=== PATIENT | male | born 1980 | race Caucasian/White ===

== ENCOUNTER 2017-05-16 08:17 | Emergency (ER) | payer BC ==
--- NOTE | 2017-05-16 09:32 | RADIOLOGY REPORT (SQ) ---
EXAM DESCRIPTION: CHEST PA/LAT COMPLETED DATE/TIME: 05/16/2017 9:08 am REASON FOR STUDY: cough COMPARISON: April 2010 EXAM PARAMETERS: NUMBER OF VIEWS: two views TECHNIQUE: Digital Frontal and Lateral radiographic views of the chest acquired. RADIATION DOSE: NA LIMITATIONS: none FINDINGS: LUNGS AND PLEURA: No opacities, masses or pneumothorax. No pleural effusion. MEDIASTINUM AND HILAR STRUCTURES: No masses or contour abnormalities. HEART AND VASCULAR STRUCTURES: Heart normal size. No evidence for failure. BONES: No acute findings. HARDWARE: None in the chest. OTHER: No other significant finding. IMPRESSION: NO SIGNIFICANT RADIOGRAPHIC FINDING IN THE CHEST. TECHNICAL DOCUMENTATION: JOB ID: [id number] [employer]- All Rights Reserved
[2017-05-16] MEDS ORDERED: ONDANSETRON 4 MG TAB.RAPDIS PO ONE (09:41)
--- NOTE | 2017-05-16 09:41 | ER Document Report ---
ED Flu Like - General Mode of Arrival: Ambulatory Information source: Patient TRAVEL OUTSIDE OF THE [place] IN LAST 30 DAYS: No <GIANNA YEPEZ - Last Filed: 05/16/17 10:43> <SHANKAR RUEDA - Last Filed: 05/16/17 15:19> - General Chief Complaint: Cough Stated Complaint: FLU LIKE SYMPTOMS Time Seen by Provider: 05/16/17 08:40 Notes: Patient is a 36-year-old male that presents to the emergency department today with complaints of flu-like symptoms including a cough, congestion, fevers, and a sore throat for the last day or so. Patient states he had a fever of 101.5 prior to arrival today and he took ibuprofen before leaving home. (GIANNA YEPEZ ) - Related Data Allergies/Adverse Reactions: No Known Allergies Allergy (Unverified 05/16/17 08:26) Past Medical History - General Information source: Patient - Social History Smoking Status: Former Smoker Cigarette use (# per day): No Chew tobacco use (# tins/day): No Frequency of alcohol use: None Drug Abuse: None Lives with: Family Family History: Reviewed & Not Pertinent Patient has suicidal ideation: No Patient has homicidal ideation: No - Medical History Medical History: Negative Surgical Hx: Negative <GIANNA YEPEZ - Last Filed: 05/16/17 10:43> Review of Systems - Review of Systems Constitutional: See HPI, Fever EENT: See HPI, Nose congestion, Throat pain Cardiovascular: No symptoms reported Respiratory: See HPI, Cough Gastrointestinal: No symptoms reported Genitourinary: No symptoms reported Male Genitourinary: No symptoms reported Musculoskeletal: No symptoms reported Skin: No symptoms reported Hematologic/Lymphatic: No symptoms reported Neurological/Psychological: No symptoms reported -: Yes All other systems reviewed and negative <GIANNA YEPEZ - Last Filed: 05/16/17 10:43> Physical Exam - Vital signs Interpretation: Tachycardic - General General appearance: Alert In distress: None - Appears uncomfortable - HEENT Head: Normocephalic, Atraumatic Eyes: Normal Pupils: PERRL Nasal: Other - congestion - Respiratory Respiratory status: No respiratory distress Chest status: Nontender Breath sounds: Normal Chest palpation: Normal - Cardiovascular Rhythm: Regular Heart sounds: Normal auscultation Murmur: No - Abdominal Inspection: Normal Distension: No distension Bowel sounds: Normal Tenderness: Nontender Organomegaly: No organomegaly - Back Back: Normal, Nontender - Extremities General upper extremity: Normal inspection, Nontender, Normal color, Normal ROM , Normal temperature General lower extremity: Normal inspection, Nontender, Normal color, Normal ROM , Normal temperature, Normal weight bearing. No: Cristofer's sign - Neurological Neuro grossly intact: Yes Cognition: Normal Orientation: AAOx4 [place] Coma Scale Eye Opening: Spontaneous [place] Coma Scale Verbal: Oriented [place] Coma Scale Motor: Obeys Commands [place] Coma Scale Total: 15 Speech: Normal Motor strength normal: LUE, RUE, LLE, RLE Sensory: Normal - Psychological Associated symptoms: Normal affect, Normal mood - Skin Skin Temperature: Warm Skin Moisture: Dry Skin Color: Normal <SHANKAR RUEDA - Last Filed: 05/16/17 15:19> - Vital signs Vitals: Temp Pulse Resp BP Pulse Ox 99.2 F 113 H 18 160/99 H 96 05/16/17 08:26 05/16/17 08:26 05/16/17 08:26 05/16/17 08:26 05/16/17 08:26 Course <GIANNA YEPEZ - Last Filed: 05/16/17 10:43> - Diagnostic Test Radiology reviewed: Reports reviewed <SHANKAR RUEDA - Last Filed: 05/16/17 15:19> - Re-evaluation Re-evalutation: 05/16/17 Patient is a 36-year-old male with flu symptoms. Patient had a fever at home and took ibuprofen. Chest x-ray and flu swab negative although the patient's symptoms are very consistent with flu. Patient will be started on Tamiflu and is to follow-up with his doctor. Return if any further concerns. 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 Understands and agrees with plan. Stable for discharge. (SHANKAR RUEDA) - Vital Signs Vital signs: Temp Pulse Resp BP Pulse Ox 98.8 F 100 18 140/83 H 99 05/16/17 10:42 05/16/17 10:42 05/16/17 10:42 05/16/17 10:42 05/16/17 10:42 Discharge <GIANNA YEPEZ - Last Filed: 05/16/17 10:43> <SHANKAR RUEDA - Last Filed: 05/16/17 15:19> - Discharge Clinical Impression: Influenza Condition: Stable Disposition: HOME, SELF-CARE Instructions: Influenza ([facility]) Additional Instructions: Please follow-up with your doctor. Please talk to your children's plant ecologist about possible influenza exposure. Prescriptions: Oseltamivir Phosphate [Tamiflu 75 mg Capsule] 75 mg PO BID #10 capsule Forms: Return to Work Scribe Attestation: 05/16/17 15:19 I personally performed the services described in the documentation, reviewed and edited the documentation which was dictated to the scribe in my presence, and it accurately records my words and actions. (SHANKAR RUEDA) Scribe Documentation - Scribe Written by Scribe:: Armando Palmer, 05/16/2017 [id number] acting as scribe for :: Jose <GIANNA YEPEZ - Last Filed: 05/16/17 10:43>
[2017-05-16] MEDS ORDERED: OSELTAMIVIR PHOSPHATE 75 MG CAPSULE PO ONE (09:42)
[2017-05-16] MEDS ORDERED: ONDANSETRON ODT 4 MG TAB (6 TAB/DSPK) PO PRN (09:44)
[2017-05-16 10:46] VITALS: BP 140/83
== END 2017-05-16 10:46 | disposition home or self-care (01) ==
LOC: ER 08:17
DX: J11.1 Influenza due to unidentified influenza virus with other respiratory manifestations (principal); R05 Cough; R50.9 Fever, unspecified; R09.81 Nasal congestion; R00.0 Tachycardia, unspecified; Z87.891 Personal history of nicotine dependence
CPT/HCPCS: 99283; 87804; 71020; S0119; J3490